=== PATIENT | female | born 1955 | race Caucasian/White ===

== ENCOUNTER 2017-07-02 20:33 | Inpatient (IN) | payer MEDICARE, MEDICAID ==
--- NOTE | 2017-07-02 21:54 | ER Document Report ---
ED GI/ - General Mode of Arrival: Ambulatory Information source: Patient TRAVEL OUTSIDE OF THE [place] IN LAST 30 DAYS: No - HPI Patient complains to provider of: Abdominal pain, Vomiting Onset: Other - 06/17/2017 Associated symptoms: Other - see notes above <XAVIER MCGUIRE - Last Filed: 07/03/17 03:43> <TRAVIS ZAMORA - Last Filed: 07/03/17 04:09> - General Chief Complaint: Abdominal Pain Stated Complaint: possible bowel obstruction Time Seen by Provider: 07/02/17 21:30 Notes: 61 year old female with history of a cholecystectomy, hernia repair, and c- section x2 presents to the ED complaining of generalized abdominal pain and bloating that worsened on 06/17/2017 and has been continuously worse since. Patient reports that she is still able to pass gas, and was having normal 1-2 bowel movements a day until today. Patient has been vomiting on and off since and has vomiting 3-4 times today. Patient additionally reports that she fell 2 weeks ago. In 2014 patient had a colonoscopy performed which showed some new polyps. Prior to moving down to [place] in June, patient saw a GI physician in [place] regarding similar symptoms and had her gallbladder removed secondary to stones. Patient was seen in Dr. Watts earlier today and was told to come to the ED. ( XAVIER MCGUIRE) Past Medical History - General Information source: Patient - Social History Smoking Status: Unknown if Ever Smoked Family History: Reviewed & Not Pertinent Past Surgical History: Reports: Hx Section - x2, Hx Cholecystectomy, Hx Herniorrhaphy <XAVIER MCGUIRE - Last Filed: 07/03/17 03:43> Review of Systems - Review of Systems Constitutional: No symptoms reported EENT: No symptoms reported Cardiovascular: No symptoms reported Respiratory: No symptoms reported Gastrointestinal: See HPI, Abdomen distended, Abdominal pain, Vomiting Genitourinary: No symptoms reported Female Genitourinary: No symptoms reported Musculoskeletal: No symptoms reported Skin: No symptoms reported Hematologic/Lymphatic: No symptoms reported Neurological/Psychological: No symptoms reported -: Yes All other systems reviewed and negative <XAVIER MCGUIRE - Last Filed: 07/03/17 03:43> Physical Exam - Vital signs Interpretation: Hypotensive, Tachycardic - General General appearance: Alert, Other - Appears uncomfortable In distress: Mild - HEENT Head: Normocephalic, Atraumatic Eyes: Normal Extraocular movements intact: Yes Pupils: PERRL - Respiratory Respiratory status: No respiratory distress - Cardiovascular Rhythm: Regular, Tachycardia Heart sounds: Normal auscultation - Abdominal Inspection: Obese Distension: Distended Tenderness: Tender - diffusely tender to palpation - Extremities General upper extremity: Normal inspection General lower extremity: Normal inspection - Neurological Neuro grossly intact: Yes - Psychological Associated symptoms: Uncooperative <XAVIER MCGUIRE - Last Filed: 07/03/17 03:43> - Vital signs Vitals: Temp Pulse Resp BP Pulse Ox 98.3 F 94 22 H 93/55 L 92 07/02/17 21:02 07/02/17 21:02 07/02/17 21:02 07/02/17 21:02 07/02/17 21:02 Course - Laboratory Result Diagrams: 07/02/17 22:08 07/02/17 21:45 <XAVIER MCGUIRE - Last Filed: 07/03/17 03:43> - Laboratory Result Diagrams: 07/02/17 22:08 07/02/17 21:45 <TRAVIS ZAMORA - Last Filed: 07/03/17 04:09> - Re-evaluation Re-evalutation: 07/03/17 01:50 Patient re-evaluated and states that she is feeling better. (XAVIER MCGUIRE) 07/03/17 04:07 Patient is a 61-year-old female who presents with abdominal pain and vomiting. Patient does have leukocytosis to 22. Patient had a CT scan with p.o. and IV contrast. There are no acute findings including no surgical emergency or obstruction. Patient was treated with medication for gastritis and she is now feeling much better. She is tolerating p.o. She is not orthostatic. She ambulates without difficulty. Patient will be discharged home with omeprazole, Bentyl, and Carafate. She also be given medication for nausea, Zofran and Reglan. She is to follow-up with her certified coding specialist and return if she has any worsening or concerning symptoms. It sounds like the patient has had problems like this in the past and has been seen in [place] for similar presentation. Patient is agreeable to this plan. Will return if any worsening or concerning symptoms. Stable for discharge. Of note, she has been afebrile in the emergency department. (TRAVIS ZAMORA) - Vital Signs Vital signs: Temp Pulse Resp BP Pulse Ox 98.3 F 91 19 102/69 96 07/02/17 21:02 07/03/17 03:59 07/03/17 03:00 07/03/17 03:59 07/03/17 03:00 - Laboratory Laboratory results interpreted by me: 07/02/17 07/02/17 21:45 22:08 WBC 22.2 H Hgb 11.8 L MCHC 31.9 L RDW 15.2 H Seg Neuts % (Manual) 86 H Lymphocytes % (Manual) 10 L Abs Neuts (Manual) 19.1 H Sodium 145.5 H Carbon Dioxide 32 H BUN 41 H Creatinine 1.46 H Est GFR ( Amer) 44 L Est GFR (Non-Af Amer) 36 L AST 40 H Total Protein 6.0 L Discharge <XAVIER MCGUIRE - Last Filed: 07/03/17 03:43> <TRAVIS ZAMORA - Last Filed: 07/03/17 04:09> - Discharge Clinical Impression: Abdominal pain Qualifiers: Abdominal location: generalized Qualified Code(s): R10.84 - Generalized abdominal pain Vomiting Qualifiers: Vomiting type: unspecified Vomiting Intractability: non-intractable Nausea presence: with nausea Qualified Code(s): R11.2 - Nausea with vomiting, unspecified Condition: Stable Disposition: HOME, SELF-CARE Instructions: Abdominal Pain ([facility]), Gastritis ([facility]), Vomiting ([facility]) Additional Instructions: Please follow-up with your primary care doctor and your certified coding specialist. Please return if you have any worsening or concerning symptoms. Prescriptions: Ondansetron [Zofran Odt 4 mg Tablet] 1 tab PO Q6HP PRN #15 tab.rapdis PRN Reason: For Nausea/Vomiting Dicyclomine HCl [Bentyl 20 mg Tablet] 20 mg PO TIDP PRN #40 tablet PRN Reason: Metoclopramide HCl [Reglan 10 mg Tablet] 1 tab PO ASDIR PRN #25 tablet PRN Reason: Omeprazole 20 mg PO DAILY #30 tablet. Sucralfate [Carafate 1 gm Tablet] 1 gm PO ACHS #120 tablet Referrals: EWEJE,PETER, MD [ACTIVE STAFF] - Follow up in 3-5 days Scribe Attestation: 07/03/17 04:09 I personally performed the services described in the documentation, reviewed and edited the documentation which was dictated to the scribe in my presence, and it accurately records my words and actions. (TRAVIS ZAMORA) Scribe Documentation - Scribe Written by Scribe:: Nicola Nagel, 07/02/2017 [id number] acting as scribe for :: Guille <XAVIER MCGUIRE - Last Filed: 07/03/17 03:43>
[2017-07-02 22:18] LABS: ALANINE AMINOTRANSFERASE 46 U/L (9-52); ALBUMIN 3.6 g/dL (3.5-5.0); ALKALINE PHOSPHATASE 89 U/L (38-126); ANION GAP 11 (5-19); ASPARTATE AMINO TRANSFERASE 40 U/L (14-36); BILIRUBIN,DIRECT 0.3 mg/dL (0.0-0.4); BILIRUBIN,TOTAL 0.3 mg/dL (0.2-1.3); BLOOD UREA NITROGEN 41 mg/dL (7-20); CALCIUM 9.6 mg/dL (8.4-10.2); CARBON DIOXIDE 32 mmol/L (22-30); CHLORIDE 103 mmol/L (98-107); GLUCOSE 106 mg/dL (75-110); POTASSIUM 4.1 mmol/L (3.6-5.0); SODIUM 145.5 mmol/L (137-145)
[2017-07-02 22:27] LABS: HEMATOCRIT 37.2 % (36.0-47.0); HEMOGLOBIN 11.8 g/dL (12.0-15.5); MEAN CORPUSCULAR HEMOGLOBIN 27.6 pg (27.0-33.4); MEAN CORPUSCULAR HGB CONC 31.9 g/dL (32.0-36.0); MEAN CORPUSCULAR VOLUME 87 fl (80-97); PLATELET COUNT 250 10^3/uL (150-450); RED BLOOD COUNT 4.29 10^6/uL (3.72-5.28); RED CELL DISTRIBUTION WIDTH 15.2 % (11.5-14.0); WHITE BLOOD COUNT 22.2 10^3/uL (4.0-10.5)
--- NOTE | 2017-07-02 22:28 | RADIOLOGY REPORT (SQ) ---
EXAM DESCRIPTION: CHEST SINGLE VIEW COMPLETED DATE/TIME: 07/02/2017 10:16 pm REASON FOR STUDY: palpitations COMPARISON: None. EXAM PARAMETERS: NUMBER OF VIEWS: One view. TECHNIQUE: Single frontal radiographic view of the chest acquired. RADIATION DOSE: NA LIMITATIONS: None. FINDINGS: LUNGS AND PLEURA: No consolidation, masses or pneumothorax. No pleural effusion. MEDIASTINUM AND HILAR STRUCTURES: Mild tortuosity of the thoracic aorta. No bulky adenopathy. HEART AND VASCULAR STRUCTURES: Heart normal in size. Normal vasculature. BONES: No acute findings. HARDWARE: None in the chest. OTHER: No other significant finding. IMPRESSION: No consolidation or pleural effusion. TECHNICAL DOCUMENTATION: JOB ID: [id number] 2010 [employer]- All Rights Reserved Reading location - IP/workstation name: [email or web address]
[2017-07-02 22:38] LABS: ABSOLUTE LYMPHOCYTES# (MANUAL) 2.2 10^3/uL (0.5-4.7); ABSOLUTE MONOCYTES # (MANUAL) 0.9 10^3/uL (0.1-1.4); ABSOLUTE NEUTROPHILS# (MANUAL) 19.1 10^3/uL (1.7-8.2); ANISOCYTOSIS SLIGHT; BASOPHILS % (MANUAL) 0 % (0-2); EOSINOPHILS % (MANUAL) 0 % (0-6); LYMPHOCYTES % (MANUAL) 10 % (13-45); MONOCYTES % (MANUAL) 4 % (3-13); PLATELET COMMENT ADEQUATE; SEGMENTED NEUTROPHILS % (MAN) 86 % (42-78); TOTAL CELLS COUNTED 100; TOXIC GRANULATION SLIGHT
--- NOTE | 2017-07-02 23:20 | EKG REPORT ---
SEVERITY:- BORDERLINE ECG - SINUS RHYTHM PROBABLE LEFT ATRIAL ABNORMALITY : Confirmed by: Hema De La Cruz 02-Jul-2017 23:18:51
[2017-07-02] MEDS ORDERED: NORMAL SALINE 1000 ML 1,000 ML IV ONE (23:26)
[2017-07-02] MEDS ORDERED: ONDANSETRON HCL INJ/PF 4 MG/2 ML SDV IV ONE (23:35)
[2017-07-03] MEDS ORDERED: NORMAL SALINE 1000 ML 1,000 ML IV ONE ×2 (00:08→10:41)
[2017-07-03 00:37] LABS: APPEARANCE,URINE CLEAR; BILIRUBIN,URINE NEGATIVE (NEGATIVE); COLOR,URINE STRAW; GLUCOSE, URINE NEGATIVE (NEGATIVE); KETONES,URINE NEGATIVE (NEGATIVE); LEUKOCYTE ESTERASE,URINE NEGATIVE (NEGATIVE); NITRITE,URINE NEGATIVE (NEGATIVE); PROTEIN,URINE NEGATIVE (NEGATIVE); URINE SPECIFIC GRAVITY 1.004; UROBILINOGEN,URINE NEGATIVE mg/dL (<2.0)
--- NOTE | 2017-07-03 01:35 | RADIOLOGY REPORT (SQ) ---
EXAM DESCRIPTION: CT ABDOMEN AND PELVIS WITH CONTRAST CLINICAL HISTORY: Diffuse abdominal pain. COMPARISON: None Available. TECHNIQUE: CT of the abdomen and pelvis performed following IV administration of 100 mL of Isovue-370. DLP: 2079.33 mGycm FINDINGS: Lung Bases: The visualized lung bases are clear. Bones: No destructive bone lesions identified. Degenerative change of the spine. Left total hip arthroplasty. Abdomen: Liver: The liver has normal size and density. No intrahepatic mass or biliary dilatation. Gallbladder: Prior cholecystectomy. Spleen, Pancreas, and Adrenal Glands: The spleen, pancreas, and adrenal glands are unremarkable. Kidneys: The kidneys have normal size and contour without evidence of solid mass or hydronephrosis. Bilateral Bosniak class I renal cysts. Vasculature: Aortoiliac atherosclerosis. Ectasia/aneurysm of the infrarenal abdominal aorta measuring 2.6 cm in greatest dimension. IVC is unremarkable. The portal vein is patent. The proximal visceral and renal arteries are patent. Stomach: The stomach and duodenum have normal course. Other: No free intraperitoneal air. No free fluid or lymphadenopathy. Pelvis: Bladder: Urinary bladder is unremarkable. Bowel: Scattered diverticula of the colon without pericolic fat stranding. No dilated loops of large or small bowel. Appendix: Normal appendix. Pelvis: Uterus is not enlarged. IMPRESSION: 1. No acute inflammatory or obstructive process identified. 2. Diverticulosis without evidence of acute diverticulitis. 3. 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 Follow-up surveillance in 5 years is recommended. This exam was performed according to our departmental dose-optimization program, which includes automated exposure control, adjustment of the mA and/or kV according to patient size and/or use of iterative reconstruction technique.
[2017-07-03] MEDS ORDERED: SUCRALFATE 1 GM TABLET PO ONE (01:49)
[2017-07-03] MEDS ORDERED: PANTOPRAZOLE SODIUM 40 MG VIAL IV ONE (01:49)
[2017-07-03] MEDS ORDERED: DICYCLOMINE HCL 20 MG TABLET PO ONE (01:49)
[2017-07-03] MEDS ORDERED: OXYCODONE-ACETAMINOPHEN 5-325 MG TABLET PO ONE (04:01)
[2017-07-03] MEDS ORDERED: ONDANSETRON ODT 4 MG TAB (6 TAB/ER DISP) PO PRN (04:05)
--- NOTE | 2017-07-03 08:30 | RADIOLOGY REPORT (SQ) ---
EXAM DESCRIPTION: CHEST SINGLE VIEW COMPLETED DATE/TIME: 07/03/2017 8:10 am REASON FOR STUDY: sob COMPARISON: AP chest 07/02/2017 EXAM PARAMETERS: NUMBER OF VIEWS: One view. TECHNIQUE: Single frontal radiographic view of the chest acquired. RADIATION DOSE: NA LIMITATIONS: None. FINDINGS: LUNGS AND PLEURA: No opacities, masses or pneumothorax. No pleural effusion. MEDIASTINUM AND HILAR STRUCTURES: No masses. Contour normal. HEART AND VASCULAR STRUCTURES: Heart normal in size. Normal vasculature. BONES: No acute findings. HARDWARE: None in the chest. OTHER: No other significant finding. IMPRESSION: NO ACUTE RADIOGRAPHIC FINDING IN THE CHEST. TECHNICAL DOCUMENTATION: JOB ID: [id number] [employer]- All Rights Reserved Reading location - IP/workstation name: [email or web address]
[2017-07-03] MEDS ORDERED: ALBUTEROL SULFATE 0.083% NEB 2.5 MG/3 ML AMPUL NEB ONE (09:03)
[2017-07-03] MEDS ORDERED: FENTANYL CITRATE INJ/PF 100 MCG/2 ML AMPUL IV ONE (11:12)
[2017-07-03] MEDS ORDERED: ONDANSETRON HCL INJ/PF 4 MG/2 ML SDV IV PRN (15:45)
--- NOTE | 2017-07-03 15:52 | PDOC H&P ---
History of Present Illness Admission Date/PCP: 07/03/17 11:57 Patient complains of: Abdominal pain, nausea and vomiting, myalgia History of Present Illness: ASRA CARDOZA is a 61 year old female with history of hypertension, osteoarthritis status post right knee and left hip replacement about 1 and 2 years ago respectively, who went to Dr. Coles of gastroenterology's office for persistent nausea and vomiting. This has been going on for 2 weeks. She denies blood, but it is green looking. She also has abdominal pain, mostly epigastric but diffuse. She remembers eating salad prior to this started about 2 weeks ago. She has subjective fever, no chest pain all shortness of breath or palpitations. When she saw the game programmer, she was sent to the ED to rule out bowel obstruction. 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 Patient evaluation significant for acute kidney injury, with creatinine 1.46. She was also found to have leukocytosis at 22,000. Patient was further found to be hypotensive in the ED to 82/52. Patient denies sick mood contact, no recent antibiotics use. Denies diarrhea. She was treated with IV fluid bolus and referred to hospitalist service for admission. Past Surgical History Past Surgical History: Reports: Section - x2, Cholecystectomy, Herniorrhaphy Social History Information Source: Patient Smoking Status: Unknown if Ever Smoked Family History Family History: Reviewed & Not Pertinent Parental Family History Reviewed: Yes Children Family History Reviewed: Yes Sibling(s) Family History Reviewed.: Yes Medication/Allergy Home Medications: Alprazolam [Xanax 0.5 mg Tablet] 0.5 mg PO Q8 07/03/17 Dexlansoprazole [Dexilant 60 mg Capsule] 60 mg PO DAILY 07/03/17 Diclofenac Sodium [Voltaren] 75 mg PO Q12 07/03/17 Lisinopril/Hydrochlorothiazide [Lisinopril-Hctz 20-12.5 mg Tab] 1 tab PO Q12 05/18 Oxycodone HCl [Oxy-Ir 5 mg Tablet] 5 mg PO Q6HP PRN 07/03/17 Venlafaxine HCl [Venlafaxine HCl ER] 150 mg PO DAILY 07/03/17 Allergies/Adverse Reactions: acetaminophen [From Tylenol] Adverse Reaction (Verified 07/03/17 07:42) Review of Systems Review of Systems: CONSTITUTIONAL : Fever, chills -- No; reports fatigue and myalgia EENT: Denies eye, ear, throat, or mouth pain or symptoms. Denies nasal or sinus congestion or discharge. Denies throat, tongue, or mouth swelling or difficulty swallowing. CARDIOVASCULAR: Denies chest pain. No racing heart RESPIRATORY: Denies cough, no shortness of breath, difficulty breathing. GASTROINTESTINAL: As in HPI, no rectal bleeding or hematemesis. GENITOURINARY: Urinary symptoms -- no. MUSCULOSKELETAL: No acute weakness SKIN: Denies rash, lesions or sores. HEMATOLOGIC : Denies easy bruising or bleeding. LYMPHATIC: Denies swollen, enlarged glands. NEUROLOGICAL: New weakness, headaches, slured speach - No PSYCHIATRIC: Changes anxiety or stress, depression, suicidal ideation, or homicidal ideation -- No ALL OTHER SYSTEMS REVIEWED AND NEGATIVE. Physical Exam Vital Signs: Temp Pulse Resp BP Pulse Ox 99.4 F 91 18 108/69 98 07/03/17 07:57 07/03/17 03:59 07/03/17 14:01 07/03/17 14:00 07/03/17 13:20 GENERAL: Well-developed, no acute distress HEENT: Normocephalic/atraumatic, oral mucosa dry, no appreciable murmur NECK supple, no JVD CARDIOVASCULAR: RRR, normal S1-S2 LUNGS: CTA bilaterally ABDOMEN: Soft, diffuse tenderness worse, epigastric, no rebound or guarding, NL bowel sounds EXTREMITIES: No edema, clubbing, cyanosis MUSCULOSKELETAL: No joint swelling or erythema NEUROLOGICAL: Alert, oriented x 3, strength 5/5 throughout/no acute weakness Results Laboratory Results: White blood cells 22.2, hemoglobin 11.8. Platelets 250. Sodium 145, potassium 4.5, BUN 41, creatinine 1.46. AST 40, ALT 46, alkaline phosphatase 89, total bili 6.0. Lipase is normal at 118.9 Impressions: Abdomen/Pelvis CT 07/02/17 00:00 IMPRESSION: 1. No acute inflammatory or obstructive process identified. 2. Diverticulosis without evidence of acute diverticulitis. 3. 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 Follow-up surveillance in 5 years is recommended. This exam was performed according to our departmental dose-optimization program, which includes automated exposure control, adjustment of the mA and/or kV according to patient size and/or use of iterative reconstruction technique. Chest X-Ray 07/03/17 07:54 IMPRESSION: NO ACUTE RADIOGRAPHIC FINDING IN THE CHEST. Assessment & Plan - Diagnosis (1) Nausea and vomiting Is this a current diagnosis for this admission?: Yes Plan: History of etiology of this at this time. Differential includes gastroenteritis , which may be viral, although leukocytosis makes bacterial possible. Will treat with antiemetics Zofran as needed. -Also possible this peptic ulcer disease, with recurrent nausea vomiting and abdominal pain, identified that patient is on NSAIDs for history of osteoarthritis. Will treat with IV Protonix 40 mg every 12 for now. Will also have her game programmer, Dr. Watts, to see her. This is joint. She may very well need EGD, especially if persistent symptoms. -Current liquid diets for now, advance as tolerated. -IV fluid normal saline at 100 mL/h. Patient has received 1-2 L bolus in the ED. (2) Acute kidney injury Is this a current diagnosis for this admission?: Yes Plan: Suspect this is secondary to dehydration in the setting of nausea and vomiting. Patient received fluid bolus in the ED. Will treat with normal saline 100 mL/ h at this time. Follow Chem-7. (3) Leukocytosis Is this a current diagnosis for this admission?: Yes Plan: No clear source of infection at this time. Chest x-ray unremarkable, abdominal CT unrevealing, UA negative. We check blood cultures. Will hold off on antibiotics and follow labs and culture results. This could also be reactive in the setting of dehydration. IV fluids as previously stated. (4) Hypotension Is this a current diagnosis for this admission?: Yes Plan: Likely secondary to dehydration. IV fluid as previously stated. Will hold patient's antihypertensive for now. (5) H/O: hypertension Is this a current diagnosis for this admission?: Yes Plan: Hold antihypertensives, givien current hypotension, until blood pressure stabilizes. - Inpatient Certification Medical Necessity: Need Close Monitoring Due to Risk of Patient Decompensation, Need For IV Fluids
[2017-07-03] MEDS ORDERED: ENOXAPARIN SODIUM INJ 40 MG/0.4 ML DISP.SYRIN SUBCUT ONE (16:00)
[2017-07-03] MEDS: NORMAL SALINE 1000 ML 1,000 ML IV PRN (16:52)
[2017-07-03] MEDS ORDERED: VENLAFAXINE HCL 75 MG CAP.SR.24H PO ONE (19:15)
[2017-07-03] MEDS ORDERED: ALPRAZOLAM 0.5 MG TABLET PO ONE (20:15)
[2017-07-03] MEDS: OXYCODONE HCL IR 5 MG TABLET PO PRN (20:56)
[2017-07-03] MEDS: PANTOPRAZOLE SODIUM 40 MG VIAL IV SCH (20:56)
[2017-07-03] MEDS: ALPRAZOLAM 0.5 MG TABLET PO SCH (22:50)
[2017-07-04] MEDS: NORMAL SALINE 1000 ML 1,000 ML IV PRN ×2 (03:06→13:25)
[2017-07-04 05:07] LABS: ABSOLUTE EOSINOPHILS # (AUTO) 0.1 10^3/uL (0.0-0.6); ABSOLUTE LYMPHOCYTES (AUTO) 2.1 10^3/uL (0.5-4.7); ABSOLUTE MONOCYTES (AUTO) 0.8 10^3/uL (0.1-1.4); ABSOLUTE NEUT (AUTO) 10.1 10^3/uL (1.7-8.2); BASOPHILS % (AUTO) 0.2 % (0-2); EOSINOPHILS % (AUTO) 0.9 % (0-6); HEMATOCRIT 30.9 % (36.0-47.0); LYMPHOCYTES % (AUTO) 16.2 % (13-45); MEAN CORPUSCULAR HEMOGLOBIN 27.8 pg (27.0-33.4); MEAN CORPUSCULAR HGB CONC 32.5 g/dL (32.0-36.0); MEAN CORPUSCULAR VOLUME 86 fl (80-97); MONOCYTES % (AUTO) 6.1 % (3-13); PLATELET COUNT 184 10^3/uL (150-450); RED CELL DISTRIBUTION WIDTH 15.2 % (11.5-14.0); SEGMENTED NEUTROPHILS % (AUTO) 76.6 % (42-78); TOTAL CELLS COUNTED % (AUTO) 100 %; WHITE BLOOD COUNT 13.2 10^3/uL (4.0-10.5)
[2017-07-04 05:17] LABS: ALANINE AMINOTRANSFERASE 88 U/L (9-52); ALBUMIN 2.9 g/dL (3.5-5.0); ALKALINE PHOSPHATASE 128 U/L (38-126); ANION GAP 6 (5-19); ASPARTATE AMINO TRANSFERASE 59 U/L (14-36); BILIRUBIN,DIRECT 0.4 mg/dL (0.0-0.4); BILIRUBIN,TOTAL 0.4 mg/dL (0.2-1.3); BLOOD UREA NITROGEN 20 mg/dL (7-20); CALCIUM 9.1 mg/dL (8.4-10.2); CARBON DIOXIDE 29 mmol/L (22-30); CHLORIDE 106 mmol/L (98-107); GLUCOSE 93 mg/dL (75-110); POTASSIUM 3.7 mmol/L (3.6-5.0); TOTAL PROTEIN 5.2 g/dL (6.3-8.2)
[2017-07-04] MEDS: ALPRAZOLAM 0.5 MG TABLET PO SCH ×3 (07:09→22:13)
[2017-07-04] MEDS: OXYCODONE HCL IR 5 MG TABLET PO PRN ×3 (08:24→22:13)
[2017-07-04] MEDS ORDERED: ALPRAZOLAM 0.5 MG TABLET PO ONE (08:30)
[2017-07-04] MEDS: ENOXAPARIN SODIUM INJ 40 MG/0.4 ML DISP.SYRIN SUBCUT SCH (09:24)
[2017-07-04] MEDS: VENLAFAXINE HCL 75 MG CAP.SR.24H PO SCH (09:24)
[2017-07-04] MEDS: PANTOPRAZOLE SODIUM 40 MG VIAL IV SCH ×2 (09:24→22:13)
[2017-07-04] MEDS ORDERED: (PENDING PHARMACY ID) (Diclofenac Sodium [Voltaren] 75 MG) PO SCH (14:00)
[2017-07-04] MEDS ORDERED: DICLOFENAC SODIUM 25 MG TABLET.DR PO ONE (15:00)
--- NOTE | 2017-07-04 18:09 | PDOC PROGRESS REPORT ---
Subjective Progress Note for:: 07/04/17 Subjective:: Doing a little better today. Nausea/vomiting has decreased since admission. She is complaining of diffuse joint pain. Usually is on NSAID at home and requesting to restart. Also complaining of left ankle pain today which is new. Denies recent trauma or falls. Unsure if she is able to properly weight bear. Denies fevers, chills. Reason For Visit: INTRACTABLE N/V, CJ, LEUKOCYTOSIS Physical Exam Vital Signs: Temp Pulse Resp BP Pulse Ox 97.9 F 79 21 H 118/58 L 97 07/04/17 14:58 07/04/17 14:58 07/04/17 14:58 07/04/17 14:58 07/04/17 14:58 Intake & Output 07/03/17 07/04/17 07/05/17 06:59 06:59 06:59 Intake Total 1472 462 Output Total 1200 Balance 272 462 Weight 100.5 kg General appearance: PRESENT: no acute distress, morbidly obese, other - Resting in bed Mouth exam: PRESENT: moist Respiratory exam: PRESENT: clear to auscultation lotus, unlabored. ABSENT: tachypnea Cardiovascular exam: PRESENT: +S1, +S2. ABSENT: tachycardia GI/Abdominal exam: PRESENT: soft. ABSENT: tenderness Extremities exam: PRESENT: tenderness - Left ankle tender to palpation, non erythematous Neurological exam: PRESENT: alert, awake, CN II-XII grossly intact Psychiatric exam: PRESENT: anxious Results Laboratory Results: 07/04/17 03:44 07/04/17 03:44 07/04/17 07/04/17 07/04/17 03:44 03:44 03:44 WBC 13.2 H RBC 3.60 L Hgb 10.0 L Hct 30.9 L MCV 86 MCH 27.8 MCHC 32.5 RDW 15.2 H Plt Count 184 Seg Neutrophils % 76.6 Lymphocytes % 16.2 Monocytes % 6.1 Eosinophils % 0.9 Basophils % 0.2 Absolute Neutrophils 10.1 H Absolute Lymphocytes 2.1 Absolute Monocytes 0.8 Absolute Eosinophils 0.1 Absolute Basophils 0.0 Sodium 141.0 Potassium 3.7 Chloride 106 Carbon Dioxide 29 Anion Gap 6 BUN 20 Creatinine 0.77 Est GFR ( Amer) > 60 Est GFR (Non-Af Amer) > 60 Glucose 93 Calcium 9.1 Total Bilirubin 0.4 AST 59 H ALT 88 H Alkaline Phosphatase 128 H Total Protein 5.2 L Albumin 2.9 L TSH 0.37 L Impressions: Abdomen/Pelvis CT 07/02/17 00:00 IMPRESSION: 1. No acute inflammatory or obstructive process identified. 2. Diverticulosis without evidence of acute diverticulitis. 3. 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 Follow-up surveillance in 5 years is recommended. This exam was performed according to our departmental dose-optimization program, which includes automated exposure control, adjustment of the mA and/or kV according to patient size and/or use of iterative reconstruction technique. Chest X-Ray 07/03/17 07:54 IMPRESSION: NO ACUTE RADIOGRAPHIC FINDING IN THE CHEST. Assessment & Plan - Diagnosis (1) Nausea and vomiting Is this a current diagnosis for this admission?: Yes Plan: Principle admission problem. Etiology not certain however improved. DD: viral gastroenteritis vs. IBS - Improved with IVF and antiemetics - Has an outpatient domestic laundry worker, Dr. Watts, who has been consulted; appreciated recs - Continue conservative management for now - Advance diet as tolerated (2) Acute renal failure Qualifiers: Acute renal failure type: unspecified Qualified Code(s): N17.9 - Acute kidney failure, unspecified Is this a current diagnosis for this admission?: Yes Plan: Improved with IVF (3) Leukocytosis Is this a current diagnosis for this admission?: Yes Plan: Improved with current management. Blood cultures negative for growth. Continue to trend, repeat CBC in AM. (4) Osteoarthritis Is this a current diagnosis for this admission?: Yes Plan: -Restarted home Voltaren 75mg BID per patient request - Time Time Spent with patient: Less than 15 minutes Anticipated discharge: Home Within: within 24 hours, within 48 hours
[2017-07-04] MEDS ORDERED: DICLOFENAC SODIUM 25 MG TABLET.DR PO SCH (22:00)
[2017-07-04] MEDS: DICLOFENAC SODIUM 25 MG TABLET.DR PO SCH (22:13)
[2017-07-05] MEDS: OXYCODONE HCL IR 5 MG TABLET PO PRN (04:35)
[2017-07-05] MEDS: ALPRAZOLAM 0.5 MG TABLET PO SCH (07:19)
[2017-07-05 07:34] LABS: HEMATOCRIT 32.2 % (36.0-47.0); HEMOGLOBIN 10.4 g/dL (12.0-15.5); MEAN CORPUSCULAR HEMOGLOBIN 28.4 pg (27.0-33.4); MEAN CORPUSCULAR HGB CONC 32.4 g/dL (32.0-36.0); MEAN CORPUSCULAR VOLUME 88 fl (80-97); PLATELET COUNT 182 10^3/uL (150-450); RED BLOOD COUNT 3.67 10^6/uL (3.72-5.28); RED CELL DISTRIBUTION WIDTH 15.6 % (11.5-14.0); WHITE BLOOD COUNT 8.7 10^3/uL (4.0-10.5)
[2017-07-05 07:57] LABS: ALANINE AMINOTRANSFERASE 71 U/L (9-52); ALBUMIN 3.2 g/dL (3.5-5.0); ALKALINE PHOSPHATASE 164 U/L (38-126); ANION GAP 7 (5-19); ASPARTATE AMINO TRANSFERASE 35 U/L (14-36); BILIRUBIN,DIRECT 0.4 mg/dL (0.0-0.4); BILIRUBIN,TOTAL 0.4 mg/dL (0.2-1.3); BLOOD UREA NITROGEN 15 mg/dL (7-20); CARBON DIOXIDE 28 mmol/L (22-30); CHLORIDE 107 mmol/L (98-107); GLUCOSE 104 mg/dL (75-110); POTASSIUM 4.3 mmol/L (3.6-5.0); SODIUM 141.6 mmol/L (137-145); TOTAL PROTEIN 5.5 g/dL (6.3-8.2)
[2017-07-05] MEDS: PANTOPRAZOLE SODIUM 40 MG VIAL IV SCH (09:54)
[2017-07-05] MEDS: ENOXAPARIN SODIUM INJ 40 MG/0.4 ML DISP.SYRIN SUBCUT SCH (09:54)
[2017-07-05] MEDS: VENLAFAXINE HCL 75 MG CAP.SR.24H PO SCH (09:57)
[2017-07-05] MEDS: DICLOFENAC SODIUM 25 MG TABLET.DR PO SCH (09:57)
[2017-07-05 10:16] VITALS: BP 124/61
--- NOTE | 2017-07-05 12:38 | PDOC DISCHARGE SUMMARY ---
General - Admit/Disc Date/PCP Admission Date/Primary Care Provider: 07/03/17 11:57 Discharge Date: 07/05/17 - Discharge Diagnosis (1) Nausea and vomiting Is this a current diagnosis for this admission?: Yes Summary: Principle admission problem. Etiology not certain however improved. DD: viral gastroenteritis vs. IBS - Improved with IVF and antiemetics - Has an outpatient production finisher, Dr. Watts, who has been consulted but never saw people OUtpatient plan - Script given for Phergen 25mg PO prn - Follow up with Dr. Watts (2) Acute renal failure Is this a current diagnosis for this admission?: Yes Summary: Improved with IVF, Cr at baseline (3) Leukocytosis Is this a current diagnosis for this admission?: Yes Summary: Improved with current management. Blood cultures negative for growth. NO clear infectious etiology. will NOT discharge on antibiotics. (4) Osteoarthritis Is this a current diagnosis for this admission?: Yes Summary: Improved after home Voltaren 75mg BID was re-started - Additional Information Resuscitation Status: Full Code Discharge Diet: As Tolerated, Cardiac Discharge Activity: Activity As Tolerated, Balance Activity w/Rest Prescriptions: Promethazine HCl 25 mg PO Q12 PRN 30 Days #12 tablet PRN Reason: Home Medications: Alprazolam [Xanax 0.5 mg Tablet] 0.5 mg PO Q8 07/03/17 Dexlansoprazole [Dexilant 60 mg Capsule] 60 mg PO DAILY 07/03/17 Diclofenac Sodium [Voltaren] 75 mg PO Q12 07/03/17 Lisinopril/Hydrochlorothiazide [Lisinopril-Hctz 20-12.5 mg Tab] 1 tab PO Q12 05/18 Oxycodone HCl [Oxy-Ir 5 mg Tablet] 5 mg PO Q6HP PRN 07/03/17 Venlafaxine HCl [Venlafaxine HCl ER] 150 mg PO DAILY 07/03/17 Promethazine HCl 25 mg PO Q12 PRN 30 Days #12 tablet 07/05/17 History of Present Illness History of Present Illness: SARA CARDOZA is a 61 year old female with history of hypertension, osteoarthritis status post right knee and left hip replacement about 1 and 2 years ago respectively, who went to Dr. Coles of gastroenterology's office for persistent nausea and vomiting. This has been going on for 2 weeks. She denies blood, but it is green looking. She also has abdominal pain, mostly epigastric but diffuse. She remembers eating salad prior to this started about 2 weeks ago. She has subjective fever, no chest pain all shortness of breath or palpitations. When she saw the production finisher, she was sent to the ED to rule out bowel obstruction. 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 Patient evaluation significant for acute kidney injury, with creatinine 1.46. She was also found to have leukocytosis at 22,000. Patient was further found to be hypotensive in the ED to 82/52. Patient denies sick mood contact, no recent antibiotics use. Denies diarrhea. She was treated with IV fluid bolus and referred to hospitalist service for admission. Physical Exam Vital Signs: Temp Pulse Resp BP Pulse Ox 97.7 F 62 22 H 124/61 90 L 07/05/17 10:13 07/05/17 10:13 07/05/17 10:13 07/05/17 10:13 07/05/17 10:13 Intake & Output 07/04/17 07/05/17 07/06/17 06:59 06:59 06:59 Intake Total 1472 1662 Output Total 1200 Balance 272 1662 Weight 100.5 kg 103.9 kg General appearance: PRESENT: no acute distress, cooperative, morbidly obese Head exam: PRESENT: normocephalic Mouth exam: PRESENT: moist Respiratory exam: PRESENT: clear to auscultation lotus, unlabored Cardiovascular exam: PRESENT: +S1, +S2. ABSENT: systolic murmur, tachycardia GI/Abdominal exam: PRESENT: normal bowel sounds, soft. ABSENT: tenderness Neurological exam: PRESENT: alert, awake, CN II-XII grossly intact Psychiatric exam: PRESENT: appropriate affect Results Laboratory Results: 07/05/17 07:09 07/05/17 07:09 07/05/17 07/05/17 07:09 07:09 WBC 8.7 RBC 3.67 L Hgb 10.4 L Hct 32.2 L MCV 88 MCH 28.4 MCHC 32.4 RDW 15.6 H Plt Count 182 Sodium 141.6 Potassium 4.3 Chloride 107 Carbon Dioxide 28 Anion Gap 7 BUN 15 Creatinine 0.78 Est GFR ( Amer) > 60 Est GFR (Non-Af Amer) > 60 Glucose 104 Calcium 10.0 Total Bilirubin 0.4 AST 35 ALT 71 H Alkaline Phosphatase 164 H Total Protein 5.5 L Albumin 3.2 L Impressions: Abdomen/Pelvis CT 07/02/17 00:00 IMPRESSION: 1. No acute inflammatory or obstructive process identified. 2. Diverticulosis without evidence of acute diverticulitis. 3. 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 Follow-up surveillance in 5 years is recommended. This exam was performed according to our departmental dose-optimization program, which includes automated exposure control, adjustment of the mA and/or kV according to patient size and/or use of iterative reconstruction technique. Chest X-Ray 07/03/17 07:54 IMPRESSION: NO ACUTE RADIOGRAPHIC FINDING IN THE CHEST. Qualifiers - * PATIENT BEING DISCHARGED WITH ANY OF THE FOLLOWING DIAGNOSIS: No
== END 2017-07-05 11:00 | disposition home or self-care (01) | DRG 392 ==
LOC: ER 20:33 → EH 07-03 11:57 → OBSVTOIN 07-03 11:57 → 4S 07-03 15:59
PROVIDERS: ADMIT Family Medicine; ATTEND Family Medicine
DX: R11.2 Nausea with vomiting, unspecified (principal); N17.9 Acute kidney failure, unspecified; Z68.41 Body mass index [BMI] 40.0-44.9, adult; A08.4 Viral intestinal infection, unspecified; K58.9 Irritable bowel syndrome, unspecified; I95.9 Hypotension, unspecified; E86.0 Dehydration; I71.4 Abdominal aortic aneurysm, without rupture; I10 Essential (primary) hypertension; M79.1 Myalgia; M19.90 Unspecified osteoarthritis, unspecified site; D72.829 Elevated white blood cell count, unspecified; E66.01 Morbid (severe) obesity due to excess calories; Z96.653 Presence of artificial knee joint, bilateral
CPT/HCPCS: 36415; 71045; 74177; 80048; 80053; 80076; 81001; 83605; 83690; 84443; 84484; 85025; 85027; 87040; 93005; 93010; 94640; 96361; 96374; 96375; 96376; 99285; J1650; J2405; J3010; J3490; J7030; S0164

== ENCOUNTER → 2017-08-12 | Outpatient (CLI) | payer MEDICARE, MEDICAID ==
[2017-08-12 11:59] LABS: ALANINE AMINOTRANSFERASE 31 U/L (9-52); ALBUMIN 4.3 g/dL (3.5-5.0); ALKALINE PHOSPHATASE 101 U/L (38-126); ANION GAP 8 (5-19); ASPARTATE AMINO TRANSFERASE 21 U/L (14-36); BILIRUBIN,DIRECT 0.2 mg/dL (0.0-0.4); BILIRUBIN,TOTAL 0.3 mg/dL (0.2-1.3); BLOOD UREA NITROGEN 20 mg/dL (7-20); CALCIUM 10.9 mg/dL (8.4-10.2); CARBON DIOXIDE 33 mmol/L (22-30); CHLORIDE 105 mmol/L (98-107); GLUCOSE 107 mg/dL (75-110); POTASSIUM 4.4 mmol/L (3.6-5.0); SODIUM 146.2 mmol/L (137-145); TOTAL PROTEIN 6.9 g/dL (6.3-8.2); TRIGLYCERIDES 237 mg/dL (<150)
[2017-08-12 12:12] LABS: DIRECT LDL 123 mg/dL (<100)
[2017-08-12 12:13] LABS: VLDL CHOLESTEROL 47.4 mg/dL (10-31)
== END ==
LOC: LAB 11:13
PROVIDERS: ATTEND Family Medicine
DX: I10 Essential (primary) hypertension (principal)
CPT/HCPCS: 36415; 80053; 80061

== ENCOUNTER 2018-06-24 14:40 | Emergency (ER) | payer OTHER, MEDICARE, MEDICAID ==
[2018-06-24 14:54] VITALS: BP 157/91
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
[2018-06-24] MEDS ORDERED: IBUPROFEN 600 MG TABLET PO ONE (17:44)
== END 2018-06-24 18:09 | disposition home or self-care (01) ==
LOC: ER 14:40
DX: S16.1XXA Strain of muscle, fascia and tendon at neck level, initial encounter (principal); S63.509A Unspecified sprain of unspecified wrist, initial encounter; R51 Headache; V89.2XXA Person injured in unspecified motor-vehicle accident, traffic, initial encounter; F17.200 Nicotine dependence, unspecified, uncomplicated; Z88.6 Allergy status to analgesic agent; Z90.49 Acquired absence of other specified parts of digestive tract
CPT/HCPCS: 70450; 72070; 72125; 99284

== ENCOUNTER → 2019-10-16 | Outpatient (CLI) | payer MEDICARE ==
[2019-10-16 11:20] LABS: ALBUMIN 4.3 g/dL (3.5-5.0); ALKALINE PHOSPHATASE 111 U/L (38-126); ANION GAP 7 (5-19); ASPARTATE AMINO TRANSFERASE 22 U/L (14-36); BILIRUBIN,TOTAL 0.3 mg/dL (0.2-1.3); BLOOD UREA NITROGEN 31 mg/dL (7-20); CALCIUM 11.1 mg/dL (8.4-10.2); CARBON DIOXIDE 29 mmol/L (22-30); CHLORIDE 103 mmol/L (98-107); CHOLESTEROL 224.21 mg/dL (0-200); GLUCOSE 119 mg/dL (75-110); POTASSIUM 4.4 mmol/L (3.6-5.0); TOTAL PROTEIN 7.1 g/dL (6.3-8.2); TRIGLYCERIDES 282 mg/dL (<150)
[2019-10-16 11:31] LABS: DIRECT LDL 137 mg/dL (<100)
[2019-10-16 11:36] LABS: VLDL CHOLESTEROL 56.4 mg/dL (10-31)
== END ==
LOC: OD 10:10
PROVIDERS: ATTEND Family Medicine
DX: I10 Essential (primary) hypertension (principal); R73.03 Prediabetes
CPT/HCPCS: 36415; 80053; 80061; 83036

== ENCOUNTER → 2019-11-12 | Outpatient (CLI) | payer MEDICARE | LOC: OD 15:20 | PROVIDERS: ATTEND Family Medicine | DX: E11.9 Type 2 diabetes mellitus without complications (principal); E87.5 Hyperkalemia | CPT/HCPCS: 36415; 82306; 82310; 82330; 83036; 83970 ==

== ENCOUNTER → 2020-02-14 | Outpatient (CLI) | payer MEDICARE ==
--- NOTE | 2020-02-14 13:47 | RADIOLOGY REPORT (SQ) ---
EXAM DESCRIPTION: NM GASTRIC EMPTYING STUDY IMAGES COMPLETED DATE/TIME: 02/14/2020 12:44 pm REASON FOR STUDY: R14.0 ABDOMINAL DISTENSION (GASEOUS) R14.0 ABDOMINAL DISTENSION (GASEOUS) R68.81 EARLY SATIETY COMPARISON: None. RADIONUCLIDE AND DOSE: 2 millicuries Tc-99m Sulfur Colloid. Egg salad sandwich The route of agent administration: Oral. TECHNIQUE: 1 minute serial static imaging performed at time of meal, 1 hour, 2 hours, 3 hours, and 4 hours as needed. Once stomach reaches 90% emptying, the test is complete. Image intensity values pl otted with respect to time with linear regression algorithm. LIMITATIONS: None. FINDINGS: Patient was observed for 4 hours. Immediate post meal serves as baseline. Gastric emptying at 30 minutes was 24.7%. Gastric emptying at 60 minutes was 41.1% Gastric emptying at 90 minutes was 53.6%. Gastric emptying at 120 minutes was 63.2%. Gastric emptying at 240 minutes was 85.2%. Normal values: 60 minutes: 30-90% retained. If less than 30%, abnormally rapid emptying. If greater than 90%, delaye d gastric emptying. 120 minutes: <60% retained. If greater than 60%, delayed gastric emptying. 240 minutes: <10% retained. If greater than 10%, delayed gastric emptying. IMPRESSION: Delayed gastric emptying. TECHNICAL DOCUMENTATION: JOB ID: [id number] 2010 [employer]- All Rights Reserved rev-07/18 Reading location - IP/workstation name: [email or web address]
== END ==
LOC: RAD 07:49
PROVIDERS: ATTEND Internal Medicine Gastroenterology
DX: K30 Functional dyspepsia (principal); R14.0 Abdominal distension (gaseous); R68.81 Early satiety
CPT/HCPCS: 78264; A9541